=== PATIENT | female | born 1985 | race Caucasian/White ===

== ENCOUNTER → 2016-11-14 | Outpatient (CLI) | payer BC ==
[2016-11-14 09:55] LABS: Basophils % (A) 1 %; CH 28.9; CHCM 32.8; Eosinophils # (A) 0.3 k/uL (0-0.7); Eosinophils % (A) 6 %; HCT 45.5 % (34.0-46.0); HGB 14.5 gm/dL (11.4-16.0); Luc # (Auto) 0.13; Luc % (Auto) 3; Lymphocytes # (A) 1.2 k/uL (1.0-4.8); Lymphocytes % (A) 22 %; MCH 28.3 pg (25.0-35.0); MCV 88.4 fL (80.0-100.0); Mean Platelet Volume 7.8; Monocytes # (A) 0.3 k/uL (0-1.0); Monocytes % (A) 6 %; Neutrophils # (A) 3.3 k/uL (1.3-7.7); Neutrophils % (A) 63 %; RBC 5.14 m/uL (3.80-5.40); RDW 12.4 % (11.5-15.5); WBC 5.3 k/uL (3.8-10.6); WBC (Perox) 5.54
[2016-11-14 10:26] LABS: ALT 29 U/L (9-52); AST 18 U/L (14-36); Alkaline Phosphatase 100 U/L (38-126); Anion Gap 13 mmol/L; Blood Urea Nitrogen 13 mg/dL (7-17); Calcium 8.6 mg/dL (8.4-10.2); Carbon Dioxide 25 mmol/L (22-30); Chloride 103 mmol/L (98-107); Cholesterol 171 mg/dL (<200); Glucose 209 mg/dL (74-99); HDL Cholesterol 56 mg/dL (40-60); Non-African American GFR(MDRD) >60 (>60 ml/min/1.73 sqM); Potassium 4.2 mmol/L (3.5-5.1); Sodium 141 mmol/L (137-145); Total Bilirubin 0.6 mg/dL (0.2-1.3); Total Protein 7.5 g/dL (6.3-8.2); Triglycerides 84 mg/dL (<150)
== END | disposition home or self-care (01) ==
LOC: LABWHC1 09:31
PROVIDERS: ATTEND Internal Medicine Endocrinology, Diabetes & Metabolism
DX: E10.65 Type 1 diabetes mellitus with hyperglycemia (principal); L50.9 Urticaria, unspecified
CPT/HCPCS: 36415; 80053; 80061; 82043; 84443; 85025

== ENCOUNTER → 2017-04-10 | Outpatient (CLI) | payer BC ==
[2017-04-10 18:06] LABS: Blood Urea Nitrogen 10 mg/dL (7-17); Non-African American GFR(MDRD) >60 (>60 ml/min/1.73 sqM)
== END | disposition home or self-care (01) ==
LOC: LABWHC1 17:14
PROVIDERS: ATTEND Otolaryngology Plastic Surgery within the Head & Neck
DX: Z01.818 Encounter for other preprocedural examination (principal)
CPT/HCPCS: 36415; 82565; 84520

== ENCOUNTER → 2018-11-24 | Outpatient (CLI) | payer BC ==
[2018-11-24 11:30] LABS: Basophils % (A) 0 %; Eosinophils # (A) 0.3 k/uL (0-0.7); Eosinophils % (A) 5 %; HCT 39.4 % (34.0-46.0); HGB 13.3 gm/dL (11.4-16.0); Lymphocytes # (A) 1.6 k/uL (1.0-4.8); Lymphocytes % (A) 25 %; MCH 30.1 pg (25.0-35.0); MCHC 33.7 g/dL (31.0-37.0); MCV 89.1 fL (80.0-100.0); Mean Platelet Volume 6.5; Monocytes # (A) 0.3 k/uL (0-1.0); Monocytes % (A) 5 %; Neutrophils # (A) 4.1 k/uL (1.3-7.7); Neutrophils % (A) 63 %; Platelet Count 254 k/uL (150-450); RBC 4.42 m/uL (3.80-5.40); RDW 12.5 % (11.5-15.5); WBC 6.4 k/uL (3.8-10.6)
== END | disposition home or self-care (01) ==
LOC: LABPAT 10:16
PROVIDERS: ATTEND Orthopaedic Surgery
DX: Z01.812 Encounter for preprocedural laboratory examination (principal); G56.02 Carpal tunnel syndrome, left upper limb
CPT/HCPCS: 36415; 81025; 85025

== ENCOUNTER 2018-12-10 11:16 | Day surgery (SDC) | payer BC ==
[2018-12-07 08:48] VITALS: BMI 38.4
--- NOTE | 2018-12-09 15:16 | HP ---
HISTORY AND PHYSICAL DATE OF SURGERY: 12/10/2018 Shaylee Adams is a 33-year-old patient seen with symptomatic left carpal tunnel syndrome. We discussed treatment options. She elected to proceed with decompression left median nerve. Consent regarding the procedure was obtained. PAST MEDICAL HISTORY: Pds-oizmfje-oehqpaaxo diabetes. PAST SURGICAL HISTORY: Appendectomy, section, cholecystectomy, gastric sleeve surgery. DAILY MEDICATIONS: 1. Toujeo. 2. Humalog. ALLERGIES: PENICILLIN, CECLOR, CODEINE, DYAZIDE, DILAUDID, STEPHANIE INHIBITORS. SOCIAL HISTORY: She denies tobacco use. PHYSICAL EVALUATION OF HER LEFT HAND: She has a positive carpal compression, carpal Tinel's causing numbness and tingling throughout the median nerve distribution. She does have some decreased sensation throughout the median nerve distribution. Good radial pulses present. There is good perfusion distally. RADIOGRAPHS OF THE LEFT WRIST: Reveal mild osteoarthritis. An EMG of the upper extremities reveals severe carpal tunnel syndrome. IMPRESSION: Left carpal tunnel syndrome. PLAN: Decompression left median nerve. MMODL / IJN: [id number] /
[~2018-12-10 11:16] MED LIST: DEXAMETHASONE SOD PHOSPHATE 10 MG/ML 1 ML VIAL IV ONE; HYDROmorphone 0.5 MG/0.5 ML SYRINGE IVP PRN; LACTATED RINGERS 1,000 ML IV SCH; LIDOCAINE 1% 20 ML VIAL (10MG/ML) FOR IV START INTRADERMA PRN; MIDAZOLAM (PF) 2 MG/2 ML VIAL IV PRN; ONDANSETRON 4 MG/2 ML VIAL IVP ONE; Pre Op ABX Message 1 EACH MISC MISCELLANE ONE; fentaNYL (PF) 50 MCG/ML 2 ML AMP IV PRN
[2018-12-10] MEDS ORDERED: INSULIN ASPART 100 UNIT/ML 1 ML 10 ML VIAL SQ ONE (11:45)
[2018-12-10] MEDS ORDERED: MIDAZOLAM 2 MG/2 ML VIAL ONE (11:50)
[2018-12-10] MEDS ORDERED: KETAMINE 10 MG/ML 20 ML VIAL ONE (11:50)
[2018-12-10] MEDS ORDERED: PROPOFOL 10 MG/ML 20 ML VIAL IV ONE (11:50)
[2018-12-10] MEDS ORDERED: LIDOCAINE 1% INJ 10MG/ML (20 ML MDV) ONE (11:50)
[2018-12-10 11:57] LABS: Glucose,Whole Blood 246 mg/dL (75-99)
[2018-12-10] MEDS ORDERED: BUPIVACAINE (PF) 0.25% 30 ML VIAL SQ ONE (12:03)
[2018-12-10] MEDS ORDERED: SODIUM CHLORIDE 0.9% 100 ML with ceFAZolin 2,000 MG IV ONE ×4 (12:06)
--- NOTE | 2018-12-10 12:27 | P.OP ---
Date of Procedure: 12/10/18 Preoperative Diagnosis: Left carpal tunnel syndrome Postoperative Diagnosis: Left carpal tunnel syndrome Procedure(s) Performed: Decompression left median nerve Anesthesia: MAC, local Surgeon: Santana Clayton Estimated Blood Loss (ml): 0 Pathology: none sent Condition: stable Disposition: PACU Indications for Procedure: 33-year-old patient seen with symptomatic left carpal tunnel syndrome. After treatment options were discussed, she elected to proceed with decompression. Operative Findings: see description of procedure Description of Procedure: Patient was taken to the operative suite. Patient underwent IV sedation by the department of anesthesia. A well-padded tourniquet was placed proximal left upper extremity. The left upper extremity was prepped and draped in the normal sterile orthopedic fashion. The patient did receive preoperative IV antibiotics. The extremity was elevated and tourniquet insufflated to 250. An incision was now made beginning at the distal volar wrist crease extending distally approximately 3 cm in line with sharply through skin. I dissected down through the palmar fascia to the transverse carpal ligament. I now incised the transverse carpal ligament. I completed the release proximally and distally with blunt Metzenbaums. There was good complete release of the transverse carpal ligament. There was good decompression of the nerve. There was good hemostasis. The skin was approximate nylon suture. We applied sterile dressings. The tourniquet was released with immediate capillary refill the entire hand and digits. Sterile webrill and Gilbert bandage were applied. The patient was awakened and transferred to recovery stable condition.
[2018-12-10 12:29] VITALS: TEMP 97.6
[2018-12-10 12:41] VITALS: RESP 16
[2018-12-10] MEDS ORDERED: ACETAMINOPHEN IV (For NPO) 1,000 MG/100 ML VIAL IVPB ONE (13:06)
[2018-12-10 13:14] LABS: Glucose,Whole Blood 272 mg/dL (75-99)
[2018-12-10 13:34] VITALS: BP 104/68; PULSE 66
== END 2018-12-10 13:55 | disposition home or self-care (01) ==
LOC: OR 11:16
PROVIDERS: ATTEND Orthopaedic Surgery
DX: G56.02 Carpal tunnel syndrome, left upper limb (principal); M19.032 Primary osteoarthritis, left wrist; E11.9 Type 2 diabetes mellitus without complications; Z79.4 Long term (current) use of insulin; Z79.899 Other long term (current) drug therapy; Z88.1 Allergy status to other antibiotic agents; Z88.5 Allergy status to narcotic agent; Z88.0 Allergy status to penicillin; Z88.8 Allergy status to other drugs, medicaments and biological substances; Z91.040 Latex allergy status; Z90.49 Acquired absence of other specified parts of digestive tract; Z90.3 Acquired absence of stomach [part of]; Z98.84 Bariatric surgery status; Z86.718 Personal history of other venous thrombosis and embolism; Z86.711 Personal history of pulmonary embolism; Z86.73 Personal history of transient ischemic attack (TIA), and cerebral infarction without residual deficits
CPT/HCPCS: 81025; 64721; J2250; J0690; J2001; J0131; J2704

== ENCOUNTER → 2019-01-16 | Outpatient (CLI) | payer BC ==
[2019-01-16 16:36] LABS: Progesterone 0.6 ng/mL
== END | disposition home or self-care (01) ==
LOC: LABWHC1 09:13
PROVIDERS: ATTEND Physician Assistant Medical
DX: Z01.419 Encounter for gynecological examination (general) (routine) without abnormal findings (principal); N92.6 Irregular menstruation, unspecified
CPT/HCPCS: 36415; 82040; 82533; 82626; 83001; 83002; 83498; 84144; 84270; 84403

== ENCOUNTER → 2019-01-16 | Outpatient (CLI) | payer BC ==
[2019-01-16 10:05] LABS: Basophils % (A) 0 %; Eosinophils # (A) 0.3 k/uL (0-0.7); Eosinophils % (A) 5 %; HCT 42.4 % (34.0-46.0); Lymphocytes # (A) 1.5 k/uL (1.0-4.8); Lymphocytes % (A) 26 %; MCH 29.6 pg (25.0-35.0); MCV 89.6 fL (80.0-100.0); Mean Platelet Volume 7.3; Monocytes # (A) 0.3 k/uL (0-1.0); Monocytes % (A) 6 %; Neutrophils # (A) 3.5 k/uL (1.3-7.7); Neutrophils % (A) 60 %; Platelet Count 247 k/uL (150-450); RBC 4.73 m/uL (3.80-5.40); WBC 5.8 k/uL (3.8-10.6)
[2019-01-16 11:50] LABS: Potassium 4.2 mmol/L (3.5-5.1)
== END | disposition home or self-care (01) ==
LOC: LABPAT 09:09
PROVIDERS: ATTEND Orthopaedic Surgery
DX: Z01.812 Encounter for preprocedural laboratory examination (principal); G56.01 Carpal tunnel syndrome, right upper limb
CPT/HCPCS: 80051; 85025

== ENCOUNTER 2019-01-21 11:48 | Day surgery (SDC) | payer BC ==
[2019-01-18 14:39] VITALS: BMI 38.4
--- NOTE | 2019-01-20 13:05 | HP ---
HISTORY AND PHYSICAL DATE OF SERVICE: 01/21/2019 Shaylee Adams is a 33-year-old patient seen with symptomatic right carpal tunnel syndrome. We discussed treatment options. She elected to proceed with decompression, right median nerve. Consent regarding the procedure was obtained. PAST MEDICAL HISTORY: Mhy-hgwejwb-zoxqzzwxb diabetes. PAST SURGICAL HISTORY: Appendectomy, section, cholecystectomy. DAILY MEDICATIONS: None. ALLERGIES: PENICILLIN, CECLOR, CODEINE, DILAUDID. SOCIAL HISTORY: She denies current tobacco use. PHYSICAL EVALUATION OF THE RIGHT HAND: There is a positive carpal compression, carpal Tinel's causing numbness and tingling throughout the median nerve distribution. There is some decreased sensation throughout the median distribution carpal tunnel. The carpal tunnels are positive. There is noted tenderness along the A1 yusra areas. There is no triggering of the digit. Radiographs of the right wrist reveal mild osteoarthritis. An EMG of the upper extremities revealed carpal tunnel syndrome, which appeared severe. IMPRESSION: Right carpal tunnel syndrome. PLAN: Decompression right median nerve. MMODL / IJN: [id number] /
[~2019-01-21 11:48] MED LIST changes: -DEXAMETHASONE SOD PHOSPHATE 10 MG/ML 1 ML VIAL IV ONE; -HYDROmorphone 0.5 MG/0.5 ML SYRINGE IVP PRN; -MIDAZOLAM (PF) 2 MG/2 ML VIAL IV PRN
[2019-01-21 12:13] VITALS: RESP 16
[2019-01-21] MEDS ORDERED: DEXAMETHASONE SOD PHOS (MDV) 100 MG/10 ML VIAL IV ONE (12:44)
[2019-01-21] MEDS ORDERED: SCOPOLAMINE 1.5MG/72HR PATCH TRANSDERM ONE (12:45)
[2019-01-21 12:51] LABS: Glucose,Whole Blood 222 mg/dL (75-99)
[2019-01-21] MEDS ORDERED: ceFAZolin IN SWFI 2 GM/20 ML SYRINGE IVP ONE (13:00)
[2019-01-21] MEDS ORDERED: MIDAZOLAM 2 MG/2 ML VIAL ONE (13:39)
[2019-01-21] MEDS ORDERED: LIDOCAINE 1% INJ 10MG/ML (20 ML MDV) ONE (13:39)
[2019-01-21] MEDS ORDERED: PROPOFOL 10 MG/ML 20 ML VIAL IV ONE (13:39)
[2019-01-21] MEDS ORDERED: KETAMINE 10 MG/ML 20 ML VIAL ONE (13:39)
[2019-01-21] MEDS ORDERED: KETOROLAC 30 MG/ML 1 ML VIAL ONE (13:39)
[2019-01-21] MEDS ORDERED: BUPIVACAINE (PF) 0.25% 30 ML VIAL SQ ONE (13:40)
--- NOTE | 2019-01-21 14:12 | P.OP ---
Date of Procedure: 01/21/19 Preoperative Diagnosis: Right carpal tunnel syndrome Postoperative Diagnosis: Same Procedure(s) Performed: Decompression right median nerve Anesthesia: MAC, local Surgeon: Santana Clayton Estimated Blood Loss (ml): 0 Pathology: none sent Condition: stable Disposition: PACU Indications for Procedure: 33-year-old patient seen with symptomatically carpal tunnel syndrome. After having treatment options discussed, she elected to proceed with decompression. Operative Findings: see description of procedure Description of Procedure: The patient was taken to the operative suite. The patient underwent IV sedation by the department of anesthesia. A well-padded tourniquet placed proximal right upper extremity. Right upper extremity was prepped and draped in the normal sterile orthopedic fashion. The proposed incision site was infiltrated with 10 mL quarter percent plain Marcaine. When sufficient local analgesia was noted the tourniquet was insufflated to 250. I made an incision beginning at the distal volar wrist crease extending distally approximately 3 cm in line with the fourth metacarpal sharply through skin. I dissected down through the palmar fascia to the transverse carpal ligament. I made a small emmie through the midportion of the transverse carpal ligament. I completed the release now utilizing blunt Metzenbaums proximally and distally. There was complete release of transverse carpal ligament. There was good decompression of the nerve. There was good hemostasis. The skin margins were approximated nylon suture. Sterile dressings were applied. The tourniquet was released with immediate ca pillary refill of all digits noted. The patient was awakened, transferred to recovery stable condition.
[2019-01-21 14:29] VITALS: TEMP 97.2
[2019-01-21 14:34] LABS: Glucose,Whole Blood 175 mg/dL (75-99)
[2019-01-21 15:41] VITALS: BP 118/78; PULSE 72
[2019-01-21] MEDS ORDERED: ceFAZolin IN SWFI 2 GM/20 ML SYRINGE IVP SCH (16:00)
== END 2019-01-21 15:50 | disposition home or self-care (01) ==
LOC: OR 11:48
PROVIDERS: ATTEND Orthopaedic Surgery
DX: G56.01 Carpal tunnel syndrome, right upper limb (principal); E11.9 Type 2 diabetes mellitus without complications; M19.031 Primary osteoarthritis, right wrist; Z86.718 Personal history of other venous thrombosis and embolism; Z86.711 Personal history of pulmonary embolism; Z86.73 Personal history of transient ischemic attack (TIA), and cerebral infarction without residual deficits; Z79.4 Long term (current) use of insulin; Z88.1 Allergy status to other antibiotic agents; Z88.5 Allergy status to narcotic agent; Z88.0 Allergy status to penicillin; Z91.040 Latex allergy status
CPT/HCPCS: 81025; 64721; J2250; J2405; J2001; J1885; J1100; J2704; J0690

== ENCOUNTER → 2021-11-15 | Outpatient (CLI) | payer BC ==
--- NOTE | 2021-11-15 10:14 | FL ---
EXAMINATION TYPE: FL single contrast barium swallow DATE OF EXAM: 11/15/2021 CLINICAL INDICATION: 36 year-old female status post gastrectomy and 2011 family history of Siddharth' s, complains of food getting stuck, recurrent throat clearing since February 2021. R13.10 DYSPHAGIA,R49. 0 HOARSENESS COMPARISON: None Total Fluoroscopy Time: 1 minute 36 seconds Total images: 38 FINDINGS: The swallowing mechanism is normal and hypopharyngeal anatomy is preserved. The cervical and thoracic portions have a normal course and caliber and normal motility. The mucosa i s normal and no persistent filling defect is encountered. No hiatal hernia is present. No gastroesophageal reflux is identified. Incidentally, we note postoperative changes of sleeve gastrectomy along the length of the body of the stomach. The fundus is distended. There is appropriate emptying into the duodenum. IMPRESSION: 1. Normal single contrast esophagram. 2. Distended gastric fundus and with post surgical change of sleeve gastrectomy along the body of the stomach.
== END | disposition home or self-care (01) ==
LOC: RADUSWWP 08:50
PROVIDERS: ATTEND Otolaryngology
DX: K31.89 Other diseases of stomach and duodenum (principal); R49.0 Dysphonia; Z90.3 Acquired absence of stomach [part of]
CPT/HCPCS: 74220

== ENCOUNTER → 2023-07-05 | Outpatient (CLI) | payer BC ==
[2023-07-06 07:27] LABS: T4, Free (Free Thyroxine) 1.23 ng/dL (0.80-1.80)
== END | disposition home or self-care (01) ==
LOC: LABWHC1 10:56
PROVIDERS: ATTEND Otolaryngology
DX: E04.1 Nontoxic single thyroid nodule (principal)
CPT/HCPCS: 36415; 84439; 84443; 84481